=== PATIENT | male | born 1990 | race African-American/Black ===

== ENCOUNTER 2019-11-02 00:58 | Emergency (ER) | payer SELFPAY ==
[~2019-11-02] VITALS: Ht 180.3 cm; Wt 68.0 kg
--- NOTE | 2019-11-02 01:10 | NUR ---
ED Nurse Note: Recieved pt walked in from home with c/o left calf pain x 3 days, pt is awake, alert and oriented x 4, pt states he fell but did not have pain but now its very bad, also pt travels frequently via airplane and thinks he may have blood clot, denies any other complaints or discomforts, pain at 7/10 and throbbing intermittently, pt assisted to monitoring, will resume care as ordered.
--- NOTE | 2019-11-02 01:19 | Emergency Room Report ---
History of Present Illness General Chief Complaint: Lower Extremity Injury Source: Patient Present Illness HPI This 28-year-old male with no past medical history. He presents with chief complaint of right leg muscle spasm/charley horse. This been ongoing for last few days. Symptom he felt spasm. Symptom he felt pain to the calf and has pain from the heel tracking up to the hamstring area. No trauma. No fever chills. No edema. Right now is asymptomatic. Allergies: Coded Allergies: No Known Allergies (Unverified , 11/02/19) COVID-19 Screening Contact w/high risk pt: No Experienced COVID-19 symptoms?: No COVID-19 Testing performed EXECUTIVE ASSOCIATE: No Patient History Past Medical History: see triage record, old chart reviewed Past Surgical History: none Pertinent Family History: none Social History: Denies: smoking Immunizations: other Reviewed Nursing Documentation: PMH: Agreed; PSxH: Agreed Nursing Documentation-PMH Past Medical History: No Stated History Review of Systems Eye: Denies: eye pain, blurred vision ENT: Denies: ear pain, nose congestion, throat swelling Respiratory: Denies: cough, shortness of breath Cardiovascular: Denies: chest pain, palpitations Gastrointestinal: Denies: abdominal pain, diarrhea, nausea, vomiting Musculoskeletal: Denies: back pain, joint pain Skin: Denies: rash Neurological: Denies: headache, numbness Endocrine: Denies: increased thirst, increased urine Hematologic/Lymphatic: Denies: easy bruising All Other Systems: negative except mentioned in HPI Physical Exam Vital Signs Date Time Temp Pulse Resp B/P (MAP) Pulse Ox O2 Delivery O2 Flow Rate FiO2 11/02/19 01:02 98.2 84 15 115/62 (79) 98 Room Air Vitals normal Sp02 EP Interpretation: reviewed, normal General Appearance: well appearing, no apparent distress, alert Head: normocephalic, atraumatic Eyes: bilateral eye PERRL, bilateral eye EOMI ENT: hearing grossly normal, normal pharynx Neck: full range of motion, supple, no meningismus Respiratory: chest non-tender, lungs clear, normal breath sounds Cardiovascular #1: regular rate, rhythm, no murmur Gastrointestinal: normal bowel sounds, non tender, no mass, no organomegaly, no bruit, non-distended Musculoskeletal: back normal, normal range of motion, gait/station normal Psychiatric: mood/affect normal Medical Decision Making Diagnostic Impression: Primary Impression: Muscle spasm of right leg ER Course Patient presents with spasms/charley horse of his legs. No evidence of DVT or trauma. Creatinine is slightly elevated 1.4. 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 This may contributed to his symptoms. Will discharge home. Last Vital Signs Date Time Temp Pulse Resp B/P (MAP) Pulse Ox O2 Delivery O2 Flow Rate FiO2 11/02/19 01:02 98.2 84 15 115/62 (79) 98 Room Air Status: improved Disposition: HOME, SELF-CARE Condition: Stable Additional Instructions: Increase fluids. Decrease alcohol consumption. Follow-up with your doctor in 7 days. Return if symptoms worsen. Shahid Gimenez MD Nov 02, 2019 01:19
[2019-11-02 01:37] LABS: BASOPHILS % (AUTO) 2.3 % (0.0-2.0); EOSINOPHILS % (AUTO) 1.2 % (0.0-3.0); HEMATOCRIT 47.9 % (42.0-52.0); HEMOGLOBIN 15.9 G/DL (14.2-18.0); MEAN CORPUSCULAR VOLUME 84 FL (80-99); MONOCYTES % (AUTO) 15.2 % (1.0-10.0); NEUTROPHILS % (AUTO) 38.2 % (45.0-75.0); PLATELET COUNT 178 K/UL (150-450); RED BLOOD COUNT 5.68 M/UL (4.70-6.10); RED CELL DISTRIBUTION WIDTH 13.3 % (11.6-14.8)
[2019-11-02 01:44] LABS: ANION GAP 7 mmol/L (5-15); BLOOD UREA NITROGEN 11 mg/dL (7-18); CALCIUM 9.1 MG/DL (8.5-10.1); CARBON DIOXIDE 29 MMOL/L (21-32); CHLORIDE 103 MMOL/L (98-107); CREATININE 1.4 MG/DL (0.55-1.30); POTASSIUM 3.9 MMOL/L (3.5-5.1); SODIUM 139 MMOL/L (136-145)
[2019-11-02 02:20] VITALS: BP 119/64
[2019-11-02 02:40] VITALS: BP 119/64
--- NOTE | 2019-11-02 02:40 | NUR ---
ER DISCHARGE NOTE: Patient is cleared to be discharged per ERMD, pt is aox4, on room air, with stable vital signs. pt was given dc and prescription instructions, pt was able to verbalize understanding, pt id band and iv site removed without complications. pt is able to ambulate with steady gait. pt took all belongings.
== END 2019-11-02 02:40 | disposition home or self-care (01) ==
LOC: EMR 01:21
DX: M62.838 Other muscle spasm (principal)
CPT/HCPCS: 36415; 80048; 85025; 85379; 96360; 99284; J7030